=== PATIENT | female | born 1995 ===

== ENCOUNTER 2017-01-06 10:28 | Emergency (ER) | payer BC ==
[2017-01-06 11:19] VITALS: BP 128/61
--- NOTE | 2017-01-06 12:54 | UC ---
Complaint Female HPI - HPI Summary HPI Summary: states that her pee smells toxic for about a month. She also feels irritated. She has some vaginal drainage "here and there." She says that her perineal area feels itchy and irritated and her pelvis hurts. The pain is worse after she pees. She has had UTI before and this does not feel like a UTI. She has never had an STD before. She is sexually active. She is here with her friend Ashutosh. She had recent PHOTOGRAPHY EDITOR exam and pelvic with her PHOTOGRAPHY EDITOR at home. she states that she gets routine testing for GC/chlam and STDs and declines having these and pelvic exam done today. She thinks she has yeast infection that is causing itching and d/c, but otc topical creams are never effective for her and requires diflucan. denies n/v/fevers/body aches. - History Of Current Complaint Chief Complaint: UCGU Stated Complaint: URINARY COMPLAINT Time Seen by Provider: 01/06/17 12:52 Hx Last Menstrual Period: 12/13/16 - Allergies/Home Medications Allergies/Adverse Reactions: Allergies Allergy/AdvReac Type Severity Reaction Status Date / Time Beef Allergy Allergy See Comment Verified 01/06/17 11:19 Home Medications: Home Medications Control 1 tab PO DAILY 01/06/17 [History Confirmed 01/06/17] PMH/Surg Hx/FS Hx/Imm Hx Previously Healthy: Yes - Surgical History Surgical History: None - Family History Known Family History: Positive: Hypertension - Social History Alcohol Use: Weekly Substance Use Type: None Smoking Status (MU): Never Smoked Tobacco Review of Systems Constitutional: Negative Skin: Negative Eyes: Negative ENT: Negative Respiratory: Negative Cardiovascular: Negative Gastrointestinal: Negative Genitourinary: Dysuria Motor: Negative Neurovascular: Negative Musculoskeletal: Negative Neurological: Negative Psychological: Negative All Other Systems Reviewed And Are Negative: Yes Physical Exam Triage Information Reviewed: Yes Appearance: Well-Appearing, No Pain Distress, Well-Nourished Vital Signs: Initial Vital Signs Temp 98.1 F 01/06/17 11:14 Pulse 88 01/06/17 11:14 Resp 14 01/06/17 11:14 BP 128/61 01/06/17 11:14 Pulse Ox 100 01/06/17 11:14 Vital Signs Reviewed: Yes ENT Exam: Normal ENT: Positive: Pharynx normal, TMs normal Neck exam: Normal Neck: Positive: Supple, Nontender, No Lymphadenopathy Respiratory: Positive: Lungs clear, Normal breath sounds, No respiratory distress Cardiovascular Exam: Normal Cardiovascular: Positive: RRR, No Murmur, Pulses Normal, Brisk Capillary Refill Abdomen Description: Positive: Soft, Other: - mild suprapubic tenderness, no RLQ or LLQ tenderness. Negative: CVA Tenderness (R), CVA Tenderness (L), Distended, Guarding Bowel Sounds: Positive: Present Musculoskeletal Exam: Normal Neurological Exam: Normal Psychological Exam: Normal Skin Exam: Normal Complaint Female Dx - Course Course Of Treatment: Discussed that pelvic exam is indicated bc vaginal d/c, but she declines. UC shows + nitrates and WBCs and likely indicative of UTI, however, urine cx can take 48 hrs for definitive results. She declines pelvic exam, does not want to wait. does not want STD testing done. Discussed that abx is indicated for UTI and diflucan for probable yeast infection. If she continues to have vaginal d/c or sx worsen, she should either go to [facility] or return here. she will be home for spring and I adv that she should f/u with PHOTOGRAPHY EDITOR. preg test here neg - pt aware. She understood me well and is agreeable with this plan. - Differential Dx/Diagnosis Differential Diagnosis/HQI/PQRI: Sexually Transmitted Disease, Urinary Tract Infection Provider Diagnoses: UTI, vaginal discharge. Discharge - Discharge Plan Condition: Stable Disposition: HOME Prescriptions: Fluconazole [Diflucan] 150 mg PO ONCE #1 tab Nitrofurantoin Monohyd Macro [Macrobid] 100 mg PO BID #10 cap Patient Education Materials: Urinary Tract Infection in Women (ED), Vulvovaginal Candidiasis (ED) Referrals: Non Staff,Doctor [Primary Care Provider] - Additional Instructions: Please make sure to follow up at [facility] or here if the vaginal discharge persists.
== END 2017-01-06 13:31 | disposition home or self-care (01) ==
LOC: UCCORT 10:28
DX: N39.0 Urinary tract infection, site not specified (principal); N89.8 Other specified noninflammatory disorders of vagina; Z32.02 Encounter for pregnancy test, result negative
CPT/HCPCS: 81025; 87077; 87086; 87186; 87491; 87591; 99202; G0463